=== PATIENT | male | born 1970 | race African-American/Black ===

== ENCOUNTER 2022-01-07 17:39 | Emergency (ER) | payer BC, SELFPAY ==
[2022-01-07 17:58] VITALS: BP 147/99; PULSE 118; RESP 16; TEMP 38.2; O2SAT 99
[2022-01-07 20:22] VITALS: BP 152/90; PULSE 108; RESP 18; TEMP 37.9; O2SAT 98
--- NOTE | 2022-01-08 00:52 | PC.NURSE ---
triaged pt left before being seen by provider at this time
== END 2022-01-08 00:52 | disposition left against medical advice (07) ==
LOC: ANHED 01-08 01:08
DX: U07.1 COVID-19 (principal)
CPT/HCPCS: 99199